=== PATIENT | female | born 1960 | race Caucasian/White ===

== ENCOUNTER → 2017-05-16 | Outpatient (CLI) | payer BC ==
[~2017-05-16] MED LIST: ASPIRIN PO; CALCIUM + D PO; CERTAGEN PO; ESTRACE PO; MAG-OXIDE400 MG PO
--- NOTE | ~2017-05-16 | MY11 ---
[facility] A Service of [facility] RADIOLOGY TEXT RESULTS PATIENT: TONJA DUCKWORTH LOCATION: [facility] : 56 UNIT #: [id number] AGE: [address]: COURTNEY WOOD MD SEX: F ORDER DR: [id number] [address] [address] [id number] O MR#: [id number] Acc #: [id number] NAME: TONJA DUCKWORTH. : 1960 SEX: F STUDY DATE/TIME: 05/16/2017 12:04 UNIT: [facility]AD ROOM: STUDY DESCRIPTION: MY Mammogram Screening Dig Erik Attending Physician: Courtney Wood M.D. Referring Physician: Courtney Wood M.D. Ordering Physician: Physician Non-Staff Primary Care Physician: Tone Smith M.D. MEDICAL IMAGING REPORT This report is preliminary unless electronic signature is present. EXAM Digital screening mammogram 05/16/2017 HISTORY 56-year-old woman, positive family history, maternal aunt in her 40s. Annual screen. COMPARISON STUDIES Comparison mammograms date to 06/05/2007 with most recent 02/13/2016 FINDINGS Digital imaging of each breast was completed utilizing a two-view examination of each breast in craniocaudal and mediolateral-oblique projections. Review and interpretation of digital mammograms include a second review in conjunction with FDA-approved CAD device. There is a normal parenchymal presentation bilaterally consistent with the patient's age. There are no breast masses imaged and no parenchymal asymmetry is visualized. There are no suspicious microcalcifications and I see no focal architectural disturbance. IMPRESSION Negative screening digital mammogram. One-year followup recommended. Patients over the age of 40 are entered into a reminder system with target due date for the next mammogram. A result letter will also be sent to the patient. BIRADS: 1 Negative ADDENDUM Breast parenchyma is fatty replaced [facility] A Service of [facility] RADIOLOGY TEXT RESULTS PATIENT: TONJA DUCKWORTH LOCATION: [facility] : 56 UNIT #: [id number] AGE: [address]: COURTNEY WOOD MD SEX: F ORDER DR: Dictated by... Christopher Gaffney M.D. THIS IS AN ELECTRONICALLY VERIFIED REPORT Christopher Gaffney M.D. at 05/17/2017 8:11 AM She TD: 05/16/2017 18:06 JOB #: [id number] MEDICAL IMAGING REPORT Page 1 of 1
--- NOTE | ~2017-05-16 | BD1 ---
[facility] A Service of [facility] & [facility] RADIOLOGY TEXT RESULTS PATIENT: TONJA DUCKWORTH LOCATION: [facility] : 56 UNIT #: [id number] AGE: [address]: COURTNEY WOOD MD SEX: F ORDER DR: [id number] [address] [address] [id number] O MR#: [id number] Acc #: [id number] NAME: TONJA DUCKWORTH : 1960 SEX: F STUDY DATE/TIME: 05/16/2017 11:06 UNIT: [facility] ROOM: STUDY DESCRIPTION: BD Dexa Bone Dens 1+ Site Attending Physician: Courtney Wood M.D. Referring Physician: Courtney Wood M.D. Ordering Physician: Physician Non-Staff Primary Care Physician: Tone Smith M.D. MEDICAL IMAGING REPORT This report is preliminary unless electronic signature is present. EXAM DXA scan, 05/16/2017 HISTORY Status post menopause with no hormone replacement therapy. Osteopenia. Smoking history. FINDINGS Bone mineral density in the lumbar spine from L1 through L4 on 0.139 g/cm2 which is 0.3 standard deviations below the mean when compared to the young adult reference population which is within the range of normal. This is 0.1 standard deviations above the mean when compared to the age-matched population. Bone mineral density in the right femoral neck was 0.916 g/cm2 which is 0.9 standard deviations below the mean when compared to the young adult reference population which is within the range of normal. This is 0.1 standard deviations below the mean when compared to the age-matched population. Bone mineral density in the left femoral neck was 0.942 g/cm2 which is 0.7 standard deviations below the mean when compared to the young adult reference population which is within the range of normal. This is 0.1 standard deviations above the mean when compared to the age-matched population. IMPRESSION bone mineral density in the lumbar spine and the hips bilaterally within the range of normal. Dictated by... Fred Sams M.D. THIS IS AN ELECTRONICALLY VERIFIED REPORT [facility] A Service of [facility] & [facility] RADIOLOGY TEXT RESULTS PATIENT: TONJA DUCKWORHT LOCATION: [facility] : 56 UNIT #: [id number] AGE: [address]: COURTNEY WOOD MD SEX: F ORDER DR: Fred Sams M.D. at 05/17/2017 2:12 PM ANNIE/arnaldo TD: 05/17/2017 04:49 JOB #: [id number] MEDICAL IMAGING REPORT Page 1 of 1
== END | disposition home or self-care (01) ==
LOC: SRAD 10:46
DX: Z12.31 Encounter for screening mammogram for malignant neoplasm of breast (principal); Z13.820 Encounter for screening for osteoporosis; Z78.0 Asymptomatic menopausal state; Z80.3 Family history of malignant neoplasm of breast
CPT/HCPCS: 77080; G0202